=== PATIENT | female | born 1970 | race Caucasian/White ===

== ENCOUNTER 2023-09-18 14:49 | Outpatient (REF) | payer OTHER, SELFPAY ==
--- NOTE | ~2023-09-18 | XR_ITS ---
EXAMINATION: XR BILATERAL HIPS WITH AP PELVIS CLINICAL INFORMATION: Back and hip pain. COMPARISON: None available. TECHNIQUE: AP and frog-leg lateral views of each hip and an AP view of the pelvis. FINDINGS: Bones are in normal anatomic alignment with no acute fracture or dislocation seen. Both femoral heads are well-seated within the respected acetabula. No cortical disruption or trabecular irregularity to suggest underlying occult fracture. No significant bony degenerative or destructive lesions. Visualized soft tissues grossly unremarkable with tiny phleboliths incidentally seen in the pelvis. Unremarkable bowel gas pattern. XR/XR hip BI w PEL1V IMPRESSION: No acute fracture or dislocation. No acute bony abnormality.
--- NOTE | ~2023-09-18 | XR_ITS ---
EXAMINATION: XR THORACIC SPINE CLINICAL INFORMATION: Back pain COMPARISON: None available. TECHNIQUE: 3 views of the thoracic spine were obtained. FINDINGS: There is no fracture or bone destruction seen and the vertebral alignment is normal. There is moderate multilevel degenerative spondylosis of disc height narrowing and vertebral endplate spurs.. There is no abnormality of the paraspinal soft tissues. XR/XR thoracic spine 3V IMPRESSION: 1. No acute abnormality. 2. Moderate multilevel degenerative spondylosis of the thoracic spine.
--- NOTE | ~2023-09-18 | XR_ITS ---
EXAMINATION: XR CHEST CLINICAL INFORMATION: Back pain COMPARISON: None available. TECHNIQUE: 2 views of the chest were obtained. FINDINGS: Lungs are clear. No pulmonary vascular congestion. There is no pleural effusion. The heart size is normal. The cardiac and mediastinal contours are normal. No acute osseous abnormality. There are multilevel degenerative changes of dorsal spine. XR/XR chest 2V IMPRESSION: No acute abnormality of chest.
--- NOTE | ~2023-09-18 | XR_ITS ---
EXAMINATION: XR LUMBOSACRAL SPINE CLINICAL INFORMATION: Back pain. COMPARISON: None available. TECHNIQUE: 2 views of the lumbosacral spine. FINDINGS: Lumbar vertebrae have normal height and alignment. No fracture or bone destruction. Lumbar disc heights are normal. Minor degenerative lipping at L4 vertebrae anterior superior endplate. Facet joints are normal. No spondylolysis or spondylolisthesis. Sacroiliac joints are normal. XR/XR lumbar spine 2-3V IMPRESSION: 1. No acute abnormality. 2. Minor degenerative lipping at L4 vertebrae.
--- NOTE | ~2023-09-18 | XR_ITS ---
EXAMINATION: XR CERVICAL SPINE CLINICAL INFORMATION: Back pain. COMPARISON: None available. TECHNIQUE: 5 views of cervical spine. FINDINGS: There is degenerative disc height narrowing with vertebral endplate spur and C5-C6. Slight reversal of the lordotic curve at this disc level. There are posterior spurs encroaching into the neural foramina at C5-C6, right greater than left. Facet joints are normal. XR/XR cervical spine 5V IMPRESSION: Degenerative spondylosis of the cervical spine at C5-C6. Posterior spurs encroaching into the neural foramina at C5-C6.
== END 2023-09-18 14:50 | disposition home or self-care (01) ==
LOC: HO.XRAY 14:49
PROVIDERS: PCP Internal Medicine; Referring Provider Internal Medicine; Visit Provider Physician Assistant Medical
DX: R05.9 Cough, unspecified (principal); M54.9 Dorsalgia, unspecified; M25.552 Pain in left hip; M25.551 Pain in right hip
CPT/HCPCS: 71046; 72050; 72072; 72100; 73521

== ENCOUNTER 2023-10-26 15:44 | Emergency (ER) | payer OTHER, SELFPAY ==
--- NOTE | ~2023-10-26 | XR_ITS ---
EXAMINATION: XR WRIST, RIGHT CLINICAL INFORMATION: Pain status post injury. COMPARISON: None available. TECHNIQUE: PA, lateral, and oblique views of the right wrist. FINDINGS: The bones and soft tissues are normal. No fracture. Alignment is anatomic with normal joint spaces. No bony erosions. There is mild dorsal wrist soft tissue swelling.. XR/XR wrist RT min 3V IMPRESSION: Mild dorsal wrist soft tissue swelling. No visible acute fracture or dislocation seen.
[2023-10-26 15:46] VITALS: BP 126/75; PULSE 84; RESP 18; TEMP 36; O2SAT 97; BMI 23.3
--- NOTE | 2023-10-26 15:46 | ED_ITS ---
HPI - General Adult General Chief complaint: Extremity Injury, Upper Stated complaint: R wrist inj Time Seen by Provider: 10/26/23 16:55 Source: patient and family (patient's father) Mode of arrival: ambulatory Limitations: no limitations History of Present Illness HPI narrative: Patient is a 53 year old assigned female at with a history of breast cancer presenting to the emergency department today with right wrist pain. Patient states that she was attempting to start a pull start wood splitter when the cord snapped and she felt a snap in her wrist. Patient denies any dizziness, lightheadedness, abdominal pain, nausea, vomiting, fever, chills, blurry vision, double vision, loss of vision, chest pain, difficulty breathing, shortness of breath, back pain, night sweats, pain with urination, increased urinary frequency, increased urinary urgency, blood in her urine or stool, syncope or a near syncopal episode, bowel incontinence, bladder incontinence, bowel retention, bladder retention, or any other complaints at this time. Onset (ago): hour(s) Location: right and upper extremity Radiation: non-radiation Severity: mild Severity scale (1-10): 3 Quality: aching and dull Pain Consistency: constant Relieving factors: none Exacerbating factors: none Associated symptoms: denies other symptoms Treatments prior to arrival: none Related Data Allergies Allergy/AdvReac Type Severity Reaction Status Date / Time No Known Allergies Allergy Verified 10/26/23 15:48 Review of Systems Constitutional: Constitutional: Reports no additional constitutional complaints, Denies chills, Denies fever(s) and Denies night sweats Eyes: Eyes: Reports no additional eye complaints, Denies blurry vision, Denies change in vision, Denies diplopia, Denies eye discharge, Denies loss of vision and Denies eye pain ENT: Denies dizziness Cardiovascular: Cardiovascular: Reports no additional cardiovascular complaints, Denies chest pain, Denies lightheadedness, Denies Loss of Consciousness and Denies dyspnea Respiratory: Respiratory: Reports no additional respiratory complaints and Denies dyspnea Gastrointestinal: Gastrointestinal: Reports no additional gastrointestinal complaints, Denies abdominal pain, Denies melena, Denies hematochezia, Denies change in bowel habits and Denies change in stool character Genitourinary: Genitourinary: Denies hematuria, Denies urinary frequency, Denies dysuria, Denies urinary incontinence, Denies urinary hesitancy and Denies urinary urgency Musculoskeletal: Musculoskeletal: Reports no additional musculoskeletal complaints, Denies numbness and Denies tingling Comments: right wrist pain Neurologic: Denies dizziness, Denies loss of vision, Denies numbness and Denies tingling Psychiatric: Psychiatric: Reports no additional psychiatric complaints Endocrine: Endocrine: Reports no additional endocrine complaints Hematologic/Lymphatic: Hematologic/Lymphatic: Reports no additional hematologic/lymphatic complaints Allergic/Immunologic: Allergic/Immunologic: Reports no additional allergic/immunologic complaints PMFSH Past Medical History Attestation statement: The following information was validated with the patient. (patient's father validated all information) Source: old records reviewed, obtained from family (patient's father provided additional history and confirmed the history provided by the patient.) and nursing notes reviewed Physical Exam ED Vital Signs: Vital Signs - 24 hr 10/26/23 15:46 Temperature 96.8 F Pulse Rate 84 Respiratory Rate 18 Blood Pressure 126/75 Pulse Oximetry 97 Oxygen Delivery Method Room Air BMI result Body Mass Index 23.3 Const General: cooperative, no acute distress, alert and awake Nutritional Appearance: well nourished Orientation/consciousness: patient oriented x3 Limitations: no limitations HENMT Head: Yes normal to inspection and Yes atraumatic Ears: hearing grossly normal bilaterally and external ears normal General nose exam: Normal external nose present, no nasal discharge noted and no epistaxis Face and sinus: Yes normal facial exam, No abrasion and No laceration Mouth: Normal oral and palatal mucosa present, no drooling and no muffled voice Eyes General: appearance normal, both eyes and all related structures Periorbital: periorbital findings normal Eyelids: Yes eyelids normal Conjunctivae: conjunctivae normal Pupils: Equal, round and reactive pupils present EOM: EOMs intact bilaterally Neck Neck: Yes normal visual inspection, Yes full ROM and Yes no lymphadenopathy Chest Chest palpation & inspection: normal inspection of the chest Resp Effort & Inspection: normal respiratory effort and able to speak in complete sentences GI Inspection: Yes normal to inspection Neuro General: patient oriented x3 and moves all extremities Cranial nerves: Yes Equal, round and reactive pupils present Cognition (Neuro): normal cognition Motor exam (neuro): 5/5 motor strength present throughout Sensory Exam: Normal double simultaneous stimulation for sensation Coordination: [id number] test normal Extrem Other: mild swelling to dorsal aspect of the right wrist and pain with right wrist ROM General: Yes capillary refill normal Psych Appearance: grossly normal Mental Status: mental status grossly normal Affect: normal affect Attitude: cooperative Thought process: Normal thought process present Thought content: Normal thought content present Insight: Good insight present (Psych) Course Course Course Narrative: RME performed by Rizwana Kothari PA-C. Patient is a 53 year old assigned female at presenting to the emergency department with right wrist pain. Detailed physical exam and review of systems are deferred to the gas system operator. Imaging ordered. Patient placed back in the waiting room pending room availability and results. Procedures Orthopedic Splinting/Casting Injury #1: Side: right Upper Extremity Injury Location: wrist Upper Extremity Immobilizer: volar splint Medical Decision Making Medical Decision Making MDM Narrative: Patient is a 53 year old assigned female at with a history of breast cancer presenting to the emergency department today with right wrist pain. Odalys kaba's physical exam was as noted in the physical exam portion of this note. Patient's right wrist x-ray showed no acute process. I explained my physical exam findings as well as all test results to the patient and the patient's father. I answered all questions asked by the patient and the patient's father. Patient's right wrist was placed in a velcro wrist splint, without incident. Patient's PMS was intact prior to and after splint placement. I stressed the importance of the patient taking her medication as prescribed. I stressed the importance of the patient following up with her primary care provider and an orthopedic provider. I stressed the importance of the patient returning to the emergency department immediately if her symptoms were to worsen or if she were to develop any dizziness, shortness of breath, difficulty breathing, chest pain, blurry vision, loss of vision, nausea, vomiting, abdominal pain, fever, chills, back pain, or any other complaints. Patient and the patient's father verbalized agreement and understanding with this treatment plan and discharge. Differential Diagnosis Differential Diagnoses: The differential diagnosis associated with the presentation includes wrist sprain wrist strain wrist pain wrist fracture Admission/Observation Consideration of admission/observation: Escalation of care including admission/observation considered Patient would have been admitted to the hospital had her work up had any findi ngs where hospital admission was appropriate and her clinical presentation warranted hospital admission. Independent Interpretation I performed an independent interpretation of an: Plain X-Ray Interpretation: My interpretation is in agreement with the radiologist's impression of this imaging study. EXAMINATION: XR WRIST, RIGHT CLINICAL INFORMATION: Pain status post injury. COMPARISON: None available. TECHNIQUE: PA, lateral, and oblique views of the right wrist. FINDINGS: The bones and soft tissues are normal. No fracture. Alignment is anatomic with normal joint spaces. No bony erosions. There is mild dorsal wrist soft tissue swelling.. XR/XR wrist RT min 3V IMPRESSION: Mild dorsal wrist soft tissue swelling. No visible acute fracture or dislocation seen. Dictated By: Watson Flores MD Signed By: Electronically signed by Watson Flores MD 10/26/23 9383 Radiology Impression Discussion of test interpretation with radiology: I have reviewed the radiologist's reading. Discharge Plan Discharge Clinical Impression: Sprain and strain of wrist Patient Disposition: Home, Self-Care Instructions: Wrist Injury (ED) Additional Instructions: Follow up with your primary care provider and orthopedic provider. Return to the emergency department immediately if your symptoms worsen or if you develop any dizziness, shortness of breath, difficulty breathing, chest pain, blurry vision, loss of vision, nausea, vomiting, abdominal pain, fever, chills, back pain, or any other complaints. Referrals: [facility] [place] [facility] [Provider Group] (Call to establish and follow up with an orthopedic provider. ) Cristiane Curtis MD [Primary Care Provider] - Stand Alone Forms: Work/School Release Print Language: Danish
== END 2023-10-26 17:05 | disposition home or self-care (01) ==
LOC: HO.ED 17:01
PROVIDERS: Emergency Provider Emergency Medicine Emergency Medical Services; PCP Internal Medicine
DX: S66.911A Strain of unspecified muscle, fascia and tendon at wrist and hand level, right hand, initial encounter (principal); X58.XXXA Exposure to other specified factors, initial encounter; Y93.9 Activity, unspecified; Y92.9 Unspecified place or not applicable; Y99.8 Other external cause status
CPT/HCPCS: 73110; 99282; 99283

== ENCOUNTER 2025-03-10 08:46 | Emergency (ER) | payer OTHER, SELFPAY ==
--- NOTE | ~2025-03-10 | CT_ITS ---
EXAMINATION: CT LUMBAR SPINE WITHOUT CONTRAST CLINICAL INFORMATION: Severe low back pain, history of breast cancer DLP: 331 mGY*cm COMPARISON: X-ray 09/18/2023 TECHNIQUE: Axial CT imaging was performed from T11 disc space through mid S3. This CT examination was performed using dose optimization techniques as appropriate, variously including the following: *Automated exposure control *Adjustment of mA and/or kV according to patient size (this includes techniques or standardized protocols for targeted exams where dose is matched to indication/reason for exam; i.e. extremities or head) *Use of iterative reconstruction technique FINDINGS: There are 5 non-rib bearing lumbar segments. There are Schmorl's nodes involving superior T12, L1, L3, L4 as well as inferior T12, L1, and L5. [id number]: No gross spinal stenosis or foraminal narrowing. CT has low contrast resolution. MRI and is not optimal for evaluation of disc spaces. L5-S1: There is possible central and left paracentral disc protrusion encroaching on the left S1 nerve root in the lateral recess. CT/CT lumbar spine wo IV con IMPRESSION: L5-S1: Possible central left paracentral disc herniation encroaching on the left S1 nerve root. Consider MRI without contrast. Electronically signed by: Ramón Starks MD 03/10/2025 10:44 AM EDT
[2025-03-10 08:49] VITALS: BP 125/59; PULSE 81; RESP 18; TEMP 36.4; O2SAT 100; BMI 24.4
--- NOTE | 2025-03-10 08:51 | ED_ITS ---
HPI - Back Pain/Injury General Chief Complaint: Back Pain/Injury Stated Complaint: Back Pain, Extreme leg pain, nerves? Time Seen by Provider: 03/10/25 09:04 Source: patient and family (patient's parents) Mode of arrival: ambulatory Limitations: no limitations History of Present Illness ED Provider: Rizwana Kothari PA-C HPI Narrative: Patient is a 54 year old assigned female at with a history of breast cancer presenting to the emergency department today with left lower back pain. Patient states that 2 weeks ago she thought she injured her back and went to [facility] walk in clinic where she was given steroids and muscle relaxers but the pain has continued. Patient states that it comes and goes in waves and feels like a sharp / burning / hot sensation down the left hamstring. Patient denies any dizziness, lightheadedness, abdominal pain, nausea, vomiting, fever, chills, blurry vision, double vision, loss of vision, chest pain, difficulty breathing, shortness of breath, night sweats, pain with urination, increased urinary frequency, increased urinary urgency, blood in her urine or stool, syncope or a near syncopal episode, recent trauma or falls, bowel incontinence, bladder incontinence, or any other complaints at this time. Onset (ago): week(s) (2) Timing: intermittent and progressively worsening Exacerbating factors: none Relieving factors: none Associated symptoms: denies other symptoms Related Data Previous Rx's ?Medication ?Instructions ?Recorded diazepam 2 mg tablet (Valium) 2 mg PO TID PRN muscle spasm #7 03/10/25 tabs Allergies Allergy/AdvReac Type Severity Reaction Status Date / Time Penicillins [PCN] Allergy Hives Verified 03/10/25 08:49 Review of Systems Constitutional: Constitutional: Reports no additional constitutional complaints, Denies chills, Denies fever(s) and Denies night sweats Eyes: Eyes: Reports no additional eye complaints, Denies blurry vision, Denies change in vision, Denies diplopia, Denies eye discharge, Denies loss of vision and Denies eye pain ENT: Denies dizziness Cardiovascular: Cardiovascular: Reports no additional cardiovascular complaints, Denies chest pain, Denies lightheadedness, Denies Loss of Consciousness and Denies dyspnea Respiratory: Respiratory: Reports no additional respiratory complaints and Denies dyspnea Gastrointestinal: Gastrointestinal: Reports no additional gastrointestinal complaints, Denies abdominal pain, Denies melena, Denies hematochezia, Denies change in bowel habits and Denies change in stool character Genitourinary: Genitourinary: Denies hematuria, Denies urinary frequency, Denies dysuria, Denies urinary incontinence, Denies urinary hesitancy and Denies urinary urgency Musculoskeletal: Musculoskeletal: Reports no additional musculoskeletal complaints, Denies numbness and Denies tingling Comments: left sided low back pain that radiates into the left upper leg Neurologic: Denies dizziness, Denies loss of vision, Denies numbness and Denies tingling Psychiatric: Psychiatric: Reports no additional psychiatric complaints Endocrine: Endocrine: Reports no additional endocrine complaints Hematologic/Lymphatic: Hematologic/Lymphatic: Reports no additional hematologic/lymphatic complaints Allergic/Immunologic: Allergic/Immunologic: Reports no additional allergic/immunologic complaints PMFSH Past Medical History Attestation statement: The following information was validated with the patient. (all information validated with the patient's parents) Source: old records reviewed, obtained from family (patient's parents provided additional history and confirmed the history provided by the patient.) and nursing notes reviewed Social History Social History Alcohol intake: current Alcohol type: beer Smoked in Last 30 Days: No Use of substances other than those prescribed or required for medical reasons: No Advance Directives: No Advance Directives Information Provided: Yes Patient : No Physical Exam Vital Signs: Vital Signs: Last Vital Signs Temp 97.4 F 03/10/25 10:15 Pulse 65 03/10/25 10:15 Resp 14 03/10/25 10:15 BP 109/69 03/10/25 10:15 Pulse Ox 96 03/10/25 10:15 O2 Del Method Room Air 03/10/25 10:15 BMI result Body Mass Index 24.4 Const: General: cooperative, no acute distress, alert and awake Nutritional Appearance: well nourished Orientation/consciousness: patient oriented x3 HEENT: Head: Yes normal to inspection and Yes atraumatic Ears: hearing grossly normal bilaterally and external ears normal General nose exam: Normal external nose present, no nasal discharge noted and no epistaxis Face and sinus: Yes normal facial exam, No abrasion and No laceration Mouth: Normal oral and palatal mucosa present, no drooling and no muffled voice Eyes: General: appearance normal, both eyes and all related structures Periorbital: periorbital findings normal Eyelids: Yes eyelids normal Conjunctivae: conjunctivae normal Pupils: Equal, round and reactive pupils present EOM: EOMs intact bilaterally Neck: Neck: Yes normal visual inspection, Yes full ROM and Yes no lymphadenopathy Resp: Effort & Inspection: normal respiratory effort and able to speak in complete sentences Neuro: General: patient oriented x3, moves all extremities and CN's II-XI intact bilaterally Cranial nerves: Yes Equal, round and reactive pupils present Cognition (Neuro): normal cognition Extrem: General: Yes normal to inspection, Yes full ROM and Yes capillary refill normal Psych: Appearance: grossly normal Mental Status: mental status grossly normal Affect: normal affect Attitude: cooperative Thought process: Normal thought process present Thought content: Normal thought content present Insight: Good insight present (Psych) Course Course Course Narrative: 54 yo female with PMH of breast cancer 2017 monitored at [facility] s/p double mastectomy, hysterectomy in who is here with L sided lower back pain that goes down to the butt this has been progressive for 3 weeks, no prior back surgery or injury. She was seen at yesterday and given toradol, prednisone for 6 days, cyclobenzaprine. Seen on Sunday at urgent care. No b/b incontinence, no saddle anesthesia, no IVDA, no blood thinners. At this time given her cancer history I am going to obtain CT lumbar spine and start on pain medications. She has never had pain like this before and has no prior back issues or procedures. this is a RAPID medical screening exam the rest of the history and physical exam is to be done by the main provider. MARCELINA 03/10/25 Medications Administered Generic Name Dose Route Start Last Admin Trade Name Freq PRN Reason Stop Dose Admin Sodium Chloride 1,000 mls @ 999 mls/hr 03/10/25 10:30 03/10/25 10:40 Ns IV 03/10/25 11:30 999 mls/hr .[id number] MARKELL Administration Discontinued Medications Generic Name Dose Route Start Last Admin Trade Name Freq PRN Reason Stop Dose Admin Diazepam 5 mg 03/10/25 08:53 03/10/25 09:14 Diazepam 10 Mg/2 Ml Cartridge IVPUSH 03/10/25 08:54 5 mg STAT STA Administration Morphine Sulfate 2 mg 03/10/25 08:53 03/10/25 09:14 Morphine Sulfate 2 Mg/Ml Cartridge IVPUSH 03/10/25 08:54 2 mg ONCE ONE Administration Protocol Medical Decision Making Medical Decision Making MDM Narrative: Patient is a 54 year old assigned female at with a history of breast cancer presenting to the emergency department today with left lower back pain. Patient's physical exam was unremarkable.Patient's lumbar spine CT ordered by the provider in triage showed L5-S1 possible central / paracentral left disc h erniation encroaching on the left S1 nerve root. Patient has no evidence of cauda equina. No bowel or bladder retention or incontinence. No numbness / tingling. I explained my physical exam findings as well as all test results to the patient. I answered all questions asked by the patient. Patient received Morphine and Valium which, upon re-evaluation, she stated it helped her symptoms significantly. I stressed the importance of the patient taking her medication as directed (either prescribed or as the over the counter packaging recommends). I stressed the importance of the patient following up with her primary care provider and a clinical account specialist. I stressed the importance of the patient returning to the emergency department immediately if her symptoms were to worsen or if she were to develop any dizziness, shortness of breath, difficulty breathing, chest pain, blurry vision, loss of vision, nausea, vomiting, abdominal pain, fever, chills, numbness, tingling, bladder incontinence, bladder retention, bowel incontinence, bowel retention or any other complaints. Patient verbalized agreement and understanding with this treatment plan and discharge. Differential Diagnosis Differential Diagnoses: The differential diagnosis associated with the presentation includes Low back pain Disc herniation Admission/Observation Consideration of admission/observation: Escalation of care including admission/observation considered Patient would have been admitted to the hospital had her work up had any findings where hospital admission was appropriate and her clinical presentation warranted hospital admission. Independent Interpretation I performed an independent interpretation of an: CT Scan (Lumbar) Interpretation: My interpretation is in agreement with the radiologist's impression of this imaging study. Report Number: [id number]: Total DLP = 331.00 mGy-cm EXAMINATION: CT LUMBAR SPINE WITHOUT CONTRAST CLINICAL INFORMATION: Severe low back pain, history of breast cancer DLP: 331 mGY*cm COMPARISON: X-ray 09/18/2023 TECHNIQUE: Axial CT imaging was performed from T11 disc space through mid S3. This CT examination was performed using dose optimization techniques as appropriate, variously including the following: *Automated exposure control *Adjustment of mA and/or kV according to patient size (this includes techniques or standardized protocols for targeted exams where dose is matched to indication/reason for exam; i.e. extremities or head) *Use of iterative reconstruction technique FINDINGS: There are 5 non-rib bearing lumbar segments. There are Schmorl's nodes involving superior T12, L1, L3, L4 as well as inferior T12, L1, and L5. [id number]: No gross spinal stenosis or foraminal narrowing. CT has low contra st resolution. MRI and is not optimal for evaluation of disc spaces. L5-S1: There is possible central and left paracentral disc protrusion encroaching on the left S1 nerve root in the lateral recess. CT/CT lumbar spine wo IV con IMPRESSION: L5-S1: Possible central left paracentral disc herniation encroaching on the left S1 nerve root. Consider MRI without contrast. Electronically signed by: Ramón Starks MD 03/10/2025 10:44 AM EDT Dictated By: Ramón Starks MD Signed By: Electronically signed by Ramón Starks MD 03/10/25 1044 Radiology Impression Discussion of test interpretation with radiology: I have reviewed the radiologist's reading. Independent Historian Clinical information obtained from an independent historian. History obtained from or confirmed by: Parent (Patient's parents provided additional history and confirmed the history provided by the patient) Prescription Management I considered prescription management with: Other (Patient prescribed valium for muscle spasm) Critical Care Time Critical Care Time Critical Care Time: Yes Total Critical Care Time: 32 Attestation: I spent 32 minutes of Critical Care Time with this patient. This does not include time spent on separately reported billable procedures. Discharge Plan Discharge Clinical Impression: Lumbar radiculopathy, Lumbar disc herniation Patient Disposition: Home, Self-Care Instructions: Lumbar Disc Herniation (ED), Lumbar Radiculopathy (ED), Lower Back Exercises (ED) Additional Instructions: Your CT scan showed a possible L5-S1 central / left paracentral disc herniation encroaching on the left S1 nerve root. Follow up with your primary care provider and a clinical account specialist. Return to the emergency department immediately if your symptoms worsen or if you develop any numbness, tingling, dizziness, shortness of breath, difficulty breathing, chest pain, blurry vision, loss of vision, nausea, vomiting, abdominal pain, fever, chills, back pain, or any other complaints. Please see the information below about our Patient Portal. If you are not yet enrolled in the [facility] Patient Portal, you will receive an enrollment email invitation following your visit to any [facility] setting. You may also self-enroll in the Patient Portal by visiting our website: [email or web address] The following information is required to access the Patient Portal: - Your [facility] Medical Record Number - Your personal home email address (must match what is in your electronic medical record, Registration staff can assist with this) - Name - Date of Capabilities of the Patient Portal: - Message some providers - View upcoming appointments - Access your health summary, medical history, and visit history - View current conditions and allergies - View procedure and lab results - View your medications, including guidelines, side effects, and precautions - Complete pre-appointment questionnaires requested by your provider - Ready summary reports of your office visits and procedures To access the Patient Portal Mobile Max, follow these directions: - Search vIPtela in the Max Store or Zoomorama Store - Download the Max - Search for [facility] - Enter your login/password Prescriptions: New diazepam [Valium] 2 mg tablet 2 mg PO TID PRN (Reason: muscle spasm) Qty: 7 0RF Referrals: [facility] [Provider Group] (Call to establish and follow up with a clinical account specialist. ) [facility] [Provider Group] (Call to establish and follow up with a clinical account specialist. ) Cristiane Curtis MD [Primary Care Provider] - Stand Alone Forms: Work/School Release Interventions: ED Discharge Assessment Last Done: 03/10/25 11:24 Print Language: Lao
[2025-03-10 08:59] VITALS: BP 125/59; PULSE 81; RESP 18; TEMP 36.4; O2SAT 100
--- NOTE | 2025-03-10 09:01 | PC.NURSE ---
Patient A&O x 3. Patient presents to ED c/o lower left back pain which radiates into posterior left leg rated 10/10. Pain started 2 weeks and symptoms have become worse. Denies injury. +ROM +CMS in all extremities. Patient went to [facility] urgent care on Sunday, xrays unremarkable and was given a shot of tordol with no effect. VSS and up to date. Family at bedside. Plan of care on going.
[2025-03-10 09:14] VITALS: RESP 16
[2025-03-10] MEDS: Morphine Sulfate 2 MG/ML CARTRIDGE IVPUSH (09:14)
[2025-03-10] MEDS: diazePAM 10 MG/2 ML CARTRIDGE 5 MG IVPUSH (09:14)
[2025-03-10 10:15] VITALS: BP 109/69; PULSE 65; RESP 14; TEMP 36.3; O2SAT 96
[2025-03-10] MEDS: 0.9 % Sodium Chloride 1,000 ML 999 ML IV (10:40)
[2025-03-10 11:24] VITALS: BP 117/77; PULSE 58; RESP 16; TEMP 36.3; O2SAT 99
== END 2025-03-10 11:30 | disposition home or self-care (01) ==
PROVIDERS: Emergency Provider Emergency Medicine; PCP Internal Medicine
DX: M51.16 Intervertebral disc disorders with radiculopathy, lumbar region (principal); M54.50 Low back pain, unspecified
CPT/HCPCS: 72131; 96361; 96374; 96375; 99284; J2270; J3360

== ENCOUNTER → 2025-03-10 08:53 | Outpatient (BNV) | payer OTHER, SELFPAY | PROVIDERS: PCP Internal Medicine; Visit Provider Radiology Diagnostic Radiology | DX: M51.16 Intervertebral disc disorders with radiculopathy, lumbar region (principal) | CPT/HCPCS: 72131 ==

== ENCOUNTER 2025-03-20 10:02 | Outpatient (AMB) | payer OTHER, SELFPAY ==
--- NOTE | 2025-03-20 10:12 | HO.SPINEOV ---
Intake Visit Reasons: ED f/u 03/10/25 Intake Note: Ms. Fowler is here today for an ED F/u for back pain/injury. Long Term Care Phlebotomist Required: No Allergies Penicillins (PCN) Allergy (Verified 03/20/25 10:14) Hives Assessment & Plan Assessment & Plan (1) Lumbar disc herniation: Code(s): M51.26 - Other intervertebral disc displacement, lumbar region Category: Medical Plan This is a very nice 54-year-old female who presents for evaluation of low back pain radiating down into her left leg, hamstring and calf that started about 3 weeks ago. She was lifting a heavy box overhead work on a chair and felt some strain in her back. Within a few days though the tightness in her back turned into a lumbar radiculopathy radiating down her leg. Ultimately she ended up pursuing treatment because the pain was so intense she was barely able to stand and move. She went to the [facility] urgent care where she had some kind of intramuscular shot and was given a steroid pack and muscle relaxers. That did not help much, she ended up at [facility] emergency room where a CT scan showed a herniated disc on the left at L5-S1. She went to [facility] as well where they ordered an MRI and changed up some of her medications. They gave her gabapentin and I believe. She was also seen by her chiropractor 6 times, and the last time it was too intense to continue because the pain was getting aggravated and significantly worse. She has been an absolute agony over the last few weeks in his unable to sit, stand, walk or sleep. The pain is becoming exhausting. She is currently on a regimen of Advil, gabapentin and tramadol but it is barely holding. She came in today with an MRI that was just done at the [facility] showing a herniated disc on the left at L5-S1 consistent with her previous CT PMH: She had a double mastectomy done 2017 for breast cancer, she is in remission, she had left ACL repair in 2008, hysterectomy in 2019. Other than that she is healthy with no major medical conditions or problems. Social hx: Does not smoke drink or use any recreational drugs Medications: Just the above-mentioned medications for her pain relief Allergies: Penicillin Physical exam: Patient is awake alert oriented, very uncomfortable, hobbling around the room, hopping on 1 ft at times because she is unable to bear weight on the left side. She is unable to sit on the examining table because she can not put pressure on her left butt cheek. She has weakness in her left plantar flexion which I would rate as 4-5 in an absent Achilles reflex. Straight leg raise is basically positive at 10 degrees, I was unable to manipulate her leg at all without severe severe pain. Imaging review: Lumbar MRI done at [facility] today, there is no report but it clearly shows a large herniated disc on the left at L5-S1 compressing the left S1 nerve root Impression: 54-year-old female presents with 3 weeks of worsening left S1 radiculopathy secondary to a large herniated disc. She is in absolute agony, has been able to walk, sit or sleep for the last 3 weeks. She has been through conservative management as outlined above. I think she would be a great candidate for left L5-S1 microdiskectomy. Especially in light of the weakness in her foot and the Achilles reflexes being absent I think we should move this up urgently. We did discuss the fact that herniated disc can resolve on their own and if she wanted to try to wait this out that possibility exists, but I could not tell her when the pain might go away. Therefore she wished to go ahead and book the surgery. I put her down for March 26 next week. I quoted success rate at 90% and she understands there is some risk that the disc could be herniate. We discuss recovery from surgery as well, she understands she will be on lifting and twisting restrictions for 6 weeks. The patient was given risk and benefits of surgery including but not limited to infection, hematoma, nerve injury, durotomy, weakness, bowel/bladder injury, persistent pain, recurrent herniated disc. We also discussed the option to continue with conservative treatment and patient wishes to proceed with surgery. They are aware they should stop NSAIDs 7 days prior to surgery. All questions were answered to the best of our ability. If there is anything about this patients medical history that we have overlooked or concerns you have about us proceeding with surgery we would appreciate any input you can offer Thank you for allowing us to care for your patient. The total time spent with this visit with this patient was 45 minutes reviewing history, physical exam, lumbar imaging review, and implementation of treatment plan or further diagnostic testing Aj Osorio MD,PhD [facility] Coding Level of Care Code New Pt Level 4 (90832) Diagnoses Lumbar disc herniation M51.26
--- OUTSIDE RECORDS SUMMARY | 2025-03-20 10:37 | XMS_ITS | Data Portability ---
Author Organization [place] - [facility], Allergy Address [address] [address] Care Team Providers Care Car Rental Deliverer Name Role Phone Secret Space Primary Care Pro vider Assessment Encounter Date Assessment Date Assessment LastModified by Organization Details LastModified Time 05/29/2024 05/29/2024 Patient with persistent right sided obstruction and pressure following septoplasty, turbinate reduction and endoscopic sinus surgery. She started powered nasal lavage but did not at the budesonide Examination showed septal deviation anteriorly to the right side but no evidence of hematoma. Debridement was performed bilaterally and a copious amount of thick secretions were evacuated. There was some small adhesion between the middle turbinate and the lateral nasal wall on the right side. I am hopeful that with steroid irrigations twice daily and saline during the day things will settle down. She will follow-up next week for debridement and see me back in 2 weeks cherelle Not available 05/29/2024 08:46:38 06/03/2024 06/03/2024 54 year old female s/p septoplasty, turbinate reduction and endoscopic sinus surgery by Dr. Richards. Currently on doxycycline. Examination again demonstrated septal deviation anteriorly to the right side but no evidence of hematoma. Debridement was performed bilaterally and a small amount amount of thick secretions were evacuated. She will continue steroid irrigations twice daily and saline during the day. She will follow-up with Dr. Richards in 2 weeks. [email or web address] Not available 06/03/2024 09:32:31 06/20/2024 06/20/2024 Marked improvement following endoscopic sinus surgery, septoplasty and turbinate reduction May 15. She will continue with steroid and saline irrigations. Follow-up in 2 months. cherelle Not available 06/20/2024 12:04:15 08/15/2024 08/15/2024 Patient with history of nasal polyps, negative allergy evaluation and mildly elevated eosinophil count. No known history of aspirin or ibuprofen allergy. She did not do the 24-hour urinary leukotriene E4. Presently doing quite well breathing is excellent sense of smell is still not great. She is doing budesonide twice daily most days. Examination shows no evidence of any polypoid degeneration. She will continue the current regimen and see me back in 6 months cherelle Not available 08/15/2024 12:00:39 Plan of Treatment Reminders Order Date Submit Date Provider Last Modified By Organization Details Last Modified Time Details Appointments Establish ed 15 2024 08:30A M MARLEE CRUZ MD Not available Not available Not available Lab None recorded. Referral None recorded. Procedures None recorded. Surgeries None recorded. Imaging None recorded. Medication Orders None recorded. Patient TargetsNo targets recorded. Patient Instructions Encounter Date Encounter Id Patient Instructions Last Modified By Organization Details Last Modified Time 02/06/2025 [id number] Patient with history of nasal polyps and mild elevation of eosinophil count. Recent increase in congestion but no evidence of polyps. Suggest more consistent use of budesonide irrigations and follow-up in 6 months cherelle Not available 02/06/2025 12:12:35 Reason for Referral None Reported. Results Created Date Observation Date Name Description Value Unit Range Abnormal Flag Note LastModifiedBy Organization Detail LastModifiedTime 05/14/20 24 12/05/2023 imagi ng/di bonyos tic resul t No observ ation record ed. [email or web address] Not Available 05:17:02 Result Notes None recorded. Problems Name Problem SNOMED Code Status Onset Date Resolution Date Notes Provider Name and Address Organization Details Recorded Time Chronic sinusitis 34969414 Active 2023 MARLEE HENRY MD [address] [place] [address], [place], [address] , [facility] - [facility] 15:25:50 Deviated nasal septum 261412815 Active 2023 MARLEE HENRY MD 100 [facility],[address], [place], [place], [address] , [facility] - [facility] [place] 4 15:26:06 Polyp of nasal cavity and/or nasal sinus 354709678 Active 2023 MARLEE HENRY MD 100 [facility],[address], [place], [address] , [place] - [facility] [place] 4 15:26:30 Chronic pansinusi tis 96502770 Active 2023 Chronic pansinusit is; Note: Date Diagnosed: 12/05/2023 4:16 PM (J32.4) Not Available [facility] 4 02:12:46 Hypertrop hy of nasal turbinate s 36360247 Active 2023 Hypertroph y of nasal turbinates ; Note: Date Diagnosed: 11/19/2015 8:40 AM (J34.3) MARLEE HENRY MD 100 [facility],[place] [address], [place], [address] , [facility] - [facility] 5 11:57:20 Polyp of nasal cavity 077627777 Active 2023 Polyp of nasal cavity; Note: Date Diagnosed: 11/24/2015 4:49 PM (J33.0) Not Available [facility] 4 02:14:46 Chronic rhinitis 97392249 Active 2023 MARLEE HENRY MD 100 [facility],[place] [address], [place], [address] , [facility] - [facility] 5 11:57:15 Eosinophi l count above reference range 934762015 Active 2024 MARLEE HENRY MD 100 [facility] [[email or web address]] 100, [place], [address] , [facility] - [facility] [place] 5 12:13:08 Problem Notes None recorded. Procedures Surgical History Date Name Laterality Status Provider Name and Address Organization Details Recorded Time 5 JMSNasal/Sinus Endoscopy-PRIOR surgical cavities completed MARLEE RICHARDS MD [address],[place] [place] [address], [address], [place] - [facility] [place] 02/06/2025 11:57:10 4 JMSNasal/Sinus Endoscopy-PRIOR surgical cavities completed MARLEE RICHARDS MD [address],[place] [address] [place] [address], [address], [place] [facility] [place] 08/15/2024 11:59:59 4 JMSNasal/Sinus Endoscopy-PRIOR surgical cavities completed MARLEE RICHARDS MD [address],[place] [address] [place] [address], [address], [place] [facility] [place] 06/20/2024 12:03:26 4 JMSNasal/Sinus Endoscopy-DEBRI BETZY completed MICHAEL GROVER PA-C [address] [facility],[place] [address] [place] [address], [address], [place] - [facility] [place] 06/03/2024 09:30:27 4 JMSNasal/Sinus Endoscopy-DEBRI BETZY completed MARLEE RICHARDS MD [address] [facility] [place] [address] [place] [address], [address], [place] [facility] [place] 05/29/2024 08:47:33 4 JMSNasal/Sinus Endoscopy-DEBRI BETZY completed MARLEE RICHARDS MD [address] [facility],[place] [address] [place] [address], [address], [place] [facility] [place] 05/27/2024 16:28:35 4 JMSNasal/Sinus Endoscopy-DEBRI BETZY completed HOLLY BAILON PA-C [address] [facility] [place] [address] [place] [address], [address], [place] - [facility] [place] 2024 11:23:19 4 functional endoscopic sinus surgery completed MARLEE RICHARDS MD [address],[place] [address] [place] [address], [address], [place] [facility] [place] 05/27/2024 16:24:33 Imaging Results None recorded. Procedure Notes None recorded. Medical Equipment None Reported. Allergies Allergen ID Allergen Name Allergen Category Reaction Reaction Severity Criticality Documentation Date Start Date Code Code System Note Provider Name and Address Organization Details Recorded Time 136854 Penicilli n Not available other Not available Not available 04/25/2024 40595 RxNorm React ion: Unkno wn; Not Available [facility] 00:23:13 Medications Name Sig Start Date Stop Date Status Note LastModified by Organization Details LastModified Time doxycycli ne hyclate 100 mg capsule TAKE 1 CAPSULE BY MOUTH TWICE A DAY FOR 10 DAYS 06/20 completed Not Available Not Available Not Available prednison e 20 mg tablet by mouth 01/27 completed Medicati on ID: [id number] P rescribe d By Name: Kathy Mart MD Brand Name: predniso ne Send Method: E-Prescr ibed Sub s Allowed: subs OK Speci al Instruct ion: Take 3 tabs daily for 3 days then 2 tabs daily for 3 days then 1 tabs daily for 3 days then stop Med icationG enericNa me: predniso ne Not Available Not Available Not Available budesonid e 0.5 mg/2 mL suspensio n for nebulizat ion USE ONE VIAL IN NEILMED RINSE TWICE DAILY. 1/2 BOTTLE PER NOSTRIL. active Not Available Not Available No t Available [address] 10 mg tablet Take 1 tablet by mouth 05/19 completed Not Available Not Available Not Available doxycycli ne hyclate 100 mg tablet TAKE 1 TABLET (100 MG) BY MOUTH EVERY 12 HOURS 02/06 completed Not Available Not Available Not Available Bactrim DS 800 mg-160 mg tablet Take 1 tablet every twelve hours as directed 05/19 completed Medicati on ID: [id number] D uration Value: 14 Brand Name: Bactrim DS Send Method: E-Prescr ibed Sub s Allowed: subs OK Speci al Instruct ion: Yogurt/p robiotic concurre ntly Med icationG enericNa me: Bactrim DS Not Available Not Available Not Available Xhance 93 mcg/actua tion breath activated aerosol Pfeifer 1 spray twice a day by intranas al route. 05/19 completed Not Available Not Available Not Available Vitals Date Recorded Body height Body mass index (BMI) Body weight Provider Name and Address Organization Details Last Updated DateTime 06/03/2024 162.56 cm 23.7 kg/m2 71554.75 g Eve Fulton [place] - [facility] 06/03/2024 08:49:30 Date Recorded Body height Body weight Provider Name and Address Organization Details Last Updated DateTime 06/20/2024 162.56 cm 37124.75 g Nandini Gee [place] [facility] [place] 06/20/2024 11:29:09 Date Recorded Body height Body mass index (BMI) Body weight Provider Name and Address Organization Details Last Updated DateTime 08/15/2024 162.56 cm 24 kg/m2 02423.93 g Bunny Reveles [place] [facility] 08/15/2024 11:44:26 Social History None recorded. Functional Status None recorded. Mental Status None recorded. Family History Nothing Reported. Medical History Condition Response Cancer Y Gynecological HistoryNo gynecological history recorded. Obstetrics History GPAL:G 0 P 0 0 0 0 Past Encounters Encounter ID Performer Location Encounter Start Date Encounter Closed Date Diagnosis/Indication Diagnosis SNOMED-CT Code Diagnosis ICD10 Code Diagnosis Note [id number] MARLEE HENRY MD [facility] [address] [address] 04/21/2024 14:44:30 04/21/2024 15:33:09 Chronic sinusitis 11815975 J32.8 The risks and benefits of endoscopic sinus surgery and septoplast y were discussed with the patient, including: bleeding, infection, anosmia (loss of sense of smell), epiphora (tearing), double vision, loss of vision, CSF leak, continued nasal obstructio n, brain injury, septal perforatio n and continued sinus infections . The patient's questions regarding surgery were discussed in detail and their concerns were addressed. The patient provided verbal informed consent and surgery will be scheduled in the near future. Endoscopic Sinus surgery brochure Deviated nasal septum 12 3260784 J34.2 Polyp of n brianne cavity and/or nasal sinus 868069978 J33.9 [id number] MARLEE HENRY MD [facility] of [address] [address] 2024 09:57:48 2024 10:27:24 Deviated nasal septum 454065263 J34.2 Resolved Hypertroph y of nasal turbinates 24031253 J34.3 Resolved Chronic pansinusitis 888 54023 J32.4 s/p FESS 04/2024 Polyp of n brianne cavity and/or nasal sinus 911082133 J33.9 s/p polypectom y 04/2024 [id number] MARLEE HENRY MD [facility] of [facility] on [address] [place] [address], [place] [address] 05/27/2024 15:32:36 05/27/2024 16:40:18 Chronic sinusitis 64146284 J32.8 [id number] MARLEE HENRY MD [facility] of [address] [address] 05/29/2024 08:07:40 05/29/2024 08:58:15 Chronic sinusitis 09444360 J32.8 [id number] MICHAEL GROVER PA-C [facility] of [facility], [facility] on [address] [place] [address], [place] [address] 06/03/2024 08:45:46 06/03/2024 09:39:23 Deviated nasal septum 968193429 J34.2 Chronic pansinusitis 888 52895 J32.4 [id number] MARLEE HENRY MD [facility] of [address] [address] 06/20/2024 11:12:16 06/20/2024 12:05:05 History of neoplasm 700935902 Z86.018 Chronic rhinitis 7788651 6 J31.0 [id number] MARLEE HENRY MD [facility] of [address] [address] 08/15/2024 11:40:50 08/15/2024 12:14:40 Chronic sinusitis 03110204 J32.8 Polyp of nasal cavity 73 6774125 J33.0 [id number] MARLEE HENRY MD [facility] of [facility] 100 [place] [address] 02/06/2025 11:13:22 02/06/2025 12:01:17 Chronic rhinitis 83495393 J31.0 Hypertroph y of nasal turbinates 76194886 J34.3 Eosinophil count above reference range 333963783 R89.8 Health Concerns Section Related Observation LastModified by Organization Detai ls LastModified Time None Recorded Concern Status LastModified by Organization Details LastModified Time None Recorded Advance Directives Directive None Recorded Payers Insurance Date Sequence Insurance Name Policy Number Policy Awan Covered Member ID Awan Member ID Guarantor Name 02/06/2025 1 [facility] [employer] (PPO) [id number] Saúl Fowler [id number] Chante Fowler Notes Date Note Type Note Provider Name and Address Organization Details Recorded Time 05/29/2024 text/html Patient with persistent right sided obstruction and pressure following septoplasty, turbinate reduction and endoscopic sinus surgery. She started powered nasal lavage but did not at the budesonide MARLEE RICHARDS MD 100 [facility],[address], [address], [place] - [facility] 05/29/2024 08:47:59 06/03/2024 text/html 54 year old fema le with persistent right sided obstruction and pressure following septoplasty, turbinate reduction and endoscopic sinus surgery by Dr. Richards. She started powered nasal lavage. She is on doxycycline. She still feels some pressure on the right side under her eye. DARLENE CERVANTES MD 100 [facility],[place] [address], [place], [address], [place] [facility] 06/04/2024 05:12:53 06/20/2024 text/html Overall doing we ll following septoplasty, turbinate reduction and bilateral endoscopic sinus surgery. Presently Breathing and sense of doing saline lavage with the powered system including the budesonide. Otherwise well. No complaints MARLEE RICHARDS MD 100 [facility] [[email or web address]] 100, [place], [address], [place] [facility] [place] 06/20/2024 12:05:18 02/06/2025 text/html More congestion recently. Prior RAST negative...Eosinop hil was 6%Not as diligent recently with budesonide MARLEE RICHARDS MD [address] [place] [address], [address], [place] [facility] 02/06/2025 12:13:23 OBGyn Episode No OBEpisode recorded.
== END 2025-03-20 11:10 | disposition home or self-care (01) ==
LOC: HO.HNS 10:03
PROVIDERS: PCP Internal Medicine; Visit Provider Physician Assistant
DX: M51.26 Other intervertebral disc displacement, lumbar region (principal)
CPT/HCPCS: 99204

== ENCOUNTER → 2025-03-24 08:12 | Outpatient (BNVA) | payer OTHER, SELFPAY | PROVIDERS: PCP Internal Medicine; Visit Provider Registered Nurse | DX: M51.27 Other intervertebral disc displacement, lumbosacral region (principal) | CPT/HCPCS: 99203 ==

== ENCOUNTER 2025-03-26 07:07 | Day surgery (SDC) | payer OTHER, SELFPAY ==
[2025-03-23 09:09] VITALS: BMI 23.0
--- NOTE | 2025-03-24 12:13 | HO.ANESPROP2 ---
Documented by User: Deepti Lowe NP 03/24/25 12:13 HPI - Anesthesia Eval Consult details Narrative: 54yo F for Left L5-S1 MicroLumbar discectomy Breast CA s/p bilat mastectomy 2016 [facility] Past Medical History Medical History Back pain Tick bite Breast cancer Surgical History Surgical History H/O sinus surgery Hx of tonsillectomy H/O colonoscopy Hx of hysterectomy History of repair of anterior cruciate ligament of left knee Hx of bilateral mastectomy Social History Social History Do you presently have visiting nurse or other home services: No Alcohol intake: current Alcohol type: beer Patient Tobacco Use Status: Never used Tobacco Use of substances other than those prescribed or required for medical reasons: No Have you been hit, kicked, punched, or otherwise hurt by someone within the past year? If so, by whom?: No Spiritual Healthcare Practices: no Buddhism Healthcare Practices: no Cultural Healthcare Practices: no Are you DNR?: No Advance Directives Information Provided: Yes (as above noted) Advance Directives on File: No FDLMP: n/a-had hysterectomy Poor oral hygiene: No (Invisalign aligners) Meds Allergies Allergy/AdvReac Type Severity Reaction Status Date / Time Penicillins (PCN) Allergy Intermediate Hives Verified 03/26/25 07:58 Home Medications ?Medication ?Instructions ?Recorded ?Confirmed ?Last Taken ?Type gabapentin 300 mg capsule 300 mg PO TID 03/23/25 03/26/25 03/25/25 History tramadol 50 mg tablet 50 mg PO TID PRN severe pain 03/23/25 03/26/25 03/26/25 06:00 History Exam Height,Weight and Vital Signs: Height 5 ft 3.5 in Weight 59.874 kg Assessment and Plan Assessment Anesthesia Assessment: Chart Reviewed Documented by User: Rossy Lr MD 03/26/25 09:40 PMFSH Past Medical History Medical History Back pain Tick bite Breast cancer Family History Family history of problems with anesthesia: No Surgical History Surgical History H/O sinus surgery Hx of tonsillectomy H/O colonoscopy Hx of hysterectomy History of repair of anterior cruciate ligament of left knee Hx of bilateral mastectomy History of Problems with Anesthesia: No Social History Social History Do you presently have visiting nurse or other home services: No Alcohol intake: current Alcohol type: beer Patient Tobacco Use Status: Never used Tobacco Use of substances other than those prescribed or required for medical reasons: No Have you been hit, kicked, punched, or otherwise hurt by someone within the past year? If so, by whom?: No Spiritual Healthcare Practices: no Buddhism Healthcare Practices: no Cultural Healthcare Practices: no Are you DNR?: No Advance Directives Information Provided: Yes (as above noted) Advance Directives on File: No FDLMP: n/a-had hysterectomy Poor oral hygiene: No (Invisalign aligners) Meds Allergies Allergy/AdvReac Type Severity Reaction Status Date / Time Penicillins (PCN) Allergy Intermediate Hives Verified 03/26/25 07:58 Home Medications ?Medication ?Instructions ?Recorded ?Confirmed ?Last Taken ?Type gabapentin 300 mg capsule 300 mg PO TID 03/23/25 03/26/25 03/25/25 History tramadol 50 mg tablet 50 mg PO TID PRN severe pain 03/23/25 03/26/25 03/26/25 06:00 History Exam Airway Mallampati Class: II TM Dist: >3cm Neck ROM: Full Heart: rrr Lungs: cta Assessment and Plan Assessment Anesthesia Assessment: Anesthesia Plan Discussed Final Anesthetic Review Family History of Problems with Anesthesia: No History of Problems with Anesthesia: No NPO: Yes ASA Class: III Final Preanesthetic Review: No Changes in Pt Med Stat, Meds/Allgs Chart Reviewed, Consent Obtained/Reviewed and Anes Risks/Benef Reviewed Patient Risk: Intermediate Procedure Risk: Intermediate Anesthetic Plan Anesthetic Plan: GA Disposition: Standard PACU
[2025-03-26] VITALS (8 sets, daily range): BP systolic 106–139; BP diastolic 70–81; PULSE 73–101; RESP 12–18; TEMP 36.1–36.6; O2SAT 96–98; BMI 23.9
--- NOTE | ~2025-03-26 | FL_ITS ---
EXAMINATION: FL GUIDANCE ONLY HISTORY: LS-S1 DISCECTOMY COMPARISON: None available. TECHNIQUE: Fluoroscopy time: 5.6 seconds. Cumulative Dose: 2.3667 mGy. DAP: 1.0295 mGym2 Images: 1. FINDINGS: A single fluoroscopic spot film of the lumbar spine in the lateral projection demonstrates a probe directed toward the L5 vertebral body from a posterior approach. FL/FL guidance in OR IMPRESSION: Fluoroscopy during procedure. Please see procedure report for additional information. Electronically signed by: Walt Cox MD 03/26/2025 10:53 AM EDT
--- NOTE | 2025-03-26 09:10 | MHC.SHP ---
Pre-Procedural Eval Section A - 24 Hr Update-Section A only Date of Service: 03/26/25 The patient is an INPATIENT: No Section B - Complete if H&P > 30 days Chief Complaint: Other intervertebral disc displacement, lumbar Details of Present Illness: Left leg pain Allergies: Allergies Allergy/AdvReac Type Severity Reaction Status Date / Time Penicillins (PCN) Allergy Intermediate Hives Verified 03/26/25 07:58 Review of Systems Sugical H&P ROS: Negative: Constitution, Cardiovascular, Respiratory, Neurological, Psychiatric, Hem-Onc, Allergic/Immunologic, Gastrointestinal, Genitourinary, Musculoskeletal, Integumentary, Endocrine and Eyes/Ears/Nose/Throat Exam Surgical H&P Exam: Normal: HEENT, Normal: Heart, Normal: Lungs, Normal: Extremities, Normal: Abdomen, Normal: Skin and Normal: Neurological (Awake, alert) Plan Diagnosis/Plan: Unchanged I have reviewed the history and physical and performed a pertinent physical examination on my patient. No changes have occurred unless specified. Left L5-S1 microdiskectomy Time Spent With Patient Time: Total time managing care of this patient today _5___ minutes.
[2025-03-26] MEDS: Lactated Ringers 1,000 ML 100 ML IVCONT (09:39)
--- NOTE | 2025-03-26 11:34 | P.OP_ITS ---
Operative Note Operative Note Date of Service: 03/26/25 Narrative: Preoperative diagnosis: Left S1 radiculopathy due to disc herniation Postoperative diagnosis: Same Procedure: Left L5-S1 microdiskectomy with microscope Surgeon: Jacek Osorio MD, PhD Construction Trades Teacher: zachary Lucero This patient is suffering from excruciating left S1 radiculopathy due to disc herniation. The patient was offered a L5-S1 microdiskectomy to decompress the nerve root. The procedure complications were explained. The patient was consented. The patient was brought to the operating room and endotracheally intubated. The patient was turned in a prone position on the Dk frame. Pr epping and draping was done followed by time-out. A mid lumbar incision was made followed by release of the paravertebral muscles on the left side to expose the L5-S1 interspace. An intraoperative x-rays obtained to confirm the correct level. The microscope was brought in. A L5 laminotomy was done followed by opening of the flavum ligament. The S1 nerve root was identified. The S1 nerve root was displaced posteriorly. The nerve root was retracted medially to expose the L5-S1 disc space. I could palpate a disc herniation medial from the S1 nerve root. The disc was very difficult to remove it to the fact that the PLL was contained in it. I incised the disc space sharply and push down disc into the disc space and eventually we were finally able to luxate several large fragments of disc herniation from under the S1 nerve root. The disc space was inspected and any residual disc fragments were removed. This resulted in an excellent decompression of the S1 nerve root. Hemostasis was done. The microscope was removed. Marcaine was injected intramuscularly.The incision was closed in two layers. Steri-Strips used to approximate the incision. An op- site were taken there was used to cover the incision. All sponge and needle counts were correct. Patient was extubated and transported in stable condition to recovery room. this procedure was done with the aid of a physician housekeeper and laundry assistant who performed the initial exposure until the microscope was brought in and performed the closure of the incision. Anesthesia: General Blood loss: 25 mL Complications: None Specimen: None Surgical time: 60 minutes Disposition: Discharge home
--- NOTE | 2025-03-26 11:38 | P.DS_ITS ---
DS: Providers Provider Date of Service: 03/26/25 Date of discharge: 03/26/25 Primary care physician: Cristiane Curtis MD Admitting clinician: Jacek Osorio DS: Diagnosis Discharge Diagnosis (1) Lumbar disc herniation: Status: Inactive DS: Summary Time Attestation Discharge Coordination Time (in mins): 4 Quality: Safe Use of Opioids Does Pt have an Active Cancer Diagnosis on the Problem List?: No Quality: Stroke Does the patient have a stroke diagnosis?: No Physical Exam Vital Signs: Vital Signs: Last Vital Signs Temp 97.9 F 03/26/25 08:02 Pulse 73 03/26/25 08:02 Resp 16 03/26/25 08:02 BP 106/70 03/26/25 08:02 Pulse Ox 98 03/26/25 08:02 O2 Del Method Room Air 03/26/25 08:02 BMI result Body Mass Index 23.9 Discharge Plan Discharge Patient Disposition: Home, Self-Care Referrals: Cristiane Curtis MD [Primary Care Provider, Medical] - 1 Week Discharge Medications: New docusate sodium [Colace] 100 mg capsule 100 mg PO BID Qty: 20 0RF oxycodone 5 mg tablet 5 mg PO Q4H PRN (Reason: pain) Qty: 20 0RF Rx Instructions: Partial Fill upon patient request. Continued tramadol 50 mg tablet 50 mg PO TID PRN (Reason: severe pain) gabapentin 300 mg capsule 300 mg PO TID Discharge Orders: Discharge Order (Routine); Ordered 03/26/25 Ordered By: Aj Rush Diet: Advance to usual diet Activity on Discharge: As tolerated Activity Restrictions/Additional Instructions: After your spinal surgery we ask you to observe the following restricti ons/guidelines: Activity: It is normal to feel some discomfort as you increase your activity, but that will improve with time. We ask you avoid heavy lifting or acitivities that cause pain. As a general rule, 8lbs is a safe limit for lifting right after surgery. Walk as much as you feel comfortable but not to exhaustion. You will feel extra tired the first few days after surgery. Stay well hydrated. It is OK to walk up and down stairs You may return to driving when you are off narcotics (such as vicodin, oxycodone, dilaudid, etc), and you are back to normal functional capacity. If you have any concerns please check with office before driving. Return to work is specific to each patient and each surgery, so please speak with your doctor/PA at first follow up. Please bring paperwork such as FMLA at that time if you need it filled out. Medications: For optimum pain control, it is best to start with a combination of 500 mg of Tylenol every 4 hours with 600 mg of Motrin every 8 hours, and use narcotics as needed in between for breakthrough pain. We will give you a short supply of narcotics after surgery (usually one weeks worth). If you need more please call the office but do not use more than prescribed. You will need to give our office 48 hours notice if you need narcotics refilled and we do not fill narcotics on weekends or evenings. If you are on a narcotic, it is a good idea to take a stool softener such as colace or senna to avoid constipation If you take blood thinner such as aspirin, Plavix, Coumadin, Effient, Eliquis etc for conditions such as Afib, DVT, Pulmonary embolus, coronary disease, stents etc please speak with your surgeon about specific details as to when you can resume these medications. You can resume NSAIDs on post op day 1 (eg: Motrin, Naproxen, etc). Follow up: Please call the office, , after surgery to arrange a 3 week follow up for wound check. Wound Care: You may remove your dressing on the first day after surgery. ?You may ?leave open to air. Please do not remove the steri strips underneath. they will fall off on their own in one week. IT IS NORMAL FOR THE WOUND TO OOZE OR BE BLOODY FOR A FEW DAYS AFTER SURGERY. ?IF THIS HAPPENS JUST PLACE NEW DRESSING OVER IT TO AVOID STAINING CLOTHES. You may shower on post op day # 1 We ask that you do not let the water soak the wound. If it does get wet, just towel dry lightly. Please do not scrub your incision or place any type of chemical/ointment on the wound. No tub baths, pools or jacuzzis for one month. If you have any leaking or redness from your wound, or fevers, please call office Print Language: Palestinian
== END 2025-03-26 13:06 | disposition home or self-care (01) ==
PROVIDERS: PCP Internal Medicine; Visit Provider Neurological Surgery
PROC: (CPT 63030; principal; 2025-03-26 09:30)
DX: M51.16 Intervertebral disc disorders with radiculopathy, lumbar region (principal); M51.26 Other intervertebral disc displacement, lumbar region; Z88.0 Allergy status to penicillin; Z85.3 Personal history of malignant neoplasm of breast; Z90.13 Acquired absence of bilateral breasts and nipples; Z79.899 Other long term (current) drug therapy; Z98.890 Other specified postprocedural states
CPT/HCPCS: 63030; J0131; J1100; J1885; J2003; J2250; J2405; J2704; J3010; J3374

== ENCOUNTER → 2025-03-26 07:07 | Outpatient (BNV) | payer OTHER, SELFPAY | PROVIDERS: PCP Internal Medicine; Visit Provider Neurological Surgery | DX: M51.26 Other intervertebral disc displacement, lumbar region (principal) | CPT/HCPCS: 63030; 99499 ==

== ENCOUNTER 2025-04-17 13:09 | Outpatient (AMB) | payer OTHER, SELFPAY ==
--- OUTSIDE RECORDS SUMMARY | 2025-04-17 13:12 | XMS_ITS | Clinical Summary ---
Author Organization [facility] Address [address] [facility] [address] [place] [address] Phone Care Team Providers Care Systems Navigator Name Role Phone Malachi White MD Primary Care Provider Self-Referred, Patient Unavailable Unavailab Donna Schwartz MD Unavailable [phone] Allergies Active Allergy Reactions Criticality Noted Date Comments Penicillins Hives 03/05/2017 Medications No known medications Active Problems Problem Noted Date Diagnosed Date Malignant neoplasm of upper- outer quadrant of right female breast 03/07/2017 Family History Medical History Relation Comments Breast cancer Maternal Aunt Ovarian cancer Neg Hx Relation Status Comments Maternal Aunt Social History Tobacco Use Types Packs/Day Years Used Date Smoking Tobacco: Never Alcohol Use Standard Drinks/Week Comments Yes 1 (1 standard drink = 0.6 oz pur e alcohol) Education Answer Date Recorded Are you interested in more education? Not on otilia e 01/19/2023 Are you concerned about learning? Not on file 01/19/2023 No 01/19/2023 No 01/19/2023 Digital Access Answer Date Recorded No 02/19/2023 No 02/19/2023 No 02/19/2023 Reliable internet access at home? Not on file 02/19/2023 Device with a working camera? 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 file Not on file Not on file Last Filed Vital Signs Vital Sign Reading Time Taken Comments Blood Pressure 121/68 03/07/2017 8:03 AM EDT COPIED FROM [facility] Pulse 75 03/07/2017 8:03 AM EDT COPIED FROM [facility] Temperature 36.9 C (98.4 F) 03/07/2017 8:03 AM EDT COPIED FROM [facility] Respiratory Rate 16 03/07/2017 8:03 AM EDT COPIED FROM [facility] Oxygen Saturation - - Inhaled Oxygen Concentration - - Weight 60.6 kg (133 lb 9.6 oz) 03/07/2017 8:03 AM EDT COPIED FROM [facility] Height 161.8 cm (5' 3.7 ) 03/07/2017 8: 03 AM EDT COPIED FROM [facility] Body Mass Index 23.15 03/07/2017 8:03 AM EDT Plan of Treatment Health Maintenance Due Date Last Done Comments Adult Td,Tdap Booster 1971 LIPID PANEL 1971 DEPRESSION SCREENING 1983 HEPATITIS C SCREENING 1989 HIV ONE-TIME SCREENING (18-65 YEARS) 1989 PNEUMOCOCCAL VACCINES (50+ years) (1 of 2 - PCV) 1990 PAP SMEAR 1992 COLOGUARD 2016 COLONOSCOPY 2016 COLORECTAL CANCER SCREENING 2016 FIT TEST 2016 FOBT 2016 SIGMOIDOSCOPY 2016 VIRTUAL COLONOSCOPY 2016 MAMMOGRAM 03/01/2019 03/01/2017, 01/23, 02/15/2017, Additional history exists ZOSTER VACCINES (2 of 2) 08/02/2021 06/07/2021 COVID-19 VACCINE (2 - 2023- season) 2024 09/22/2021 SMOKING STATUS SCREENING (Once After 26 Yrs) Completed 03/10/2017 HEPATITIS A VACCINES Aged Out 12/01/2019, 06/24/20 19 No longer eligible based on patient's age to complete this topic HIB VACCINES Aged Out No longer eligi ble based on patient's age to complete this topic MENINGOCOCCAL VACCINES (ACWY) Aged Out No longer eligible based on patient's age to complete this topic MENINGOCOCCAL VACCINES (B) Aged Out N o longer eligible based on patient's age to complete this topic Medical Devices Not on file Procedures Procedure Name Priority Date/Time Associated Diagnosis Comments BI MRI BREAST OUTSIDE (NO INTERPRETATION) Routine 03/01/2017 12:00 AM EDT from Last 3 Months or Most Recently Relevant to Health Maintenance Results * MRI Breast Outside (No Interpretation) (03/01/2017 12:00 AM EDT) Narrative CARLY - 03/07/2017 8:00 AM EDT This study is for PACS storage only and not for interpretation. us Aj Lester MD, MPH IMG OUTSIDE IMAGING W/ OUT INTERPRETATION Final Result SANDRA_ANGELA from Last 3 Months or Most Recently Relevant to Health Maintenance Insurance [facility] [facility] [employer] [facility] [employer] [facility] [employer] [facility] [employer] [facility] [employer] [facility] [employer] [facility] [employer] POS [facility] [employer] POS HC EXPLORER POS Care Teams Systems Navigator Relationship Specialty Start Date End Date Malachi White MD [address] [place] [id number] PCP - General Internal Medicine 03/01/17 Self-Referred, Patient Referring Physician 03/01/17 Donna Diaz MD Referring Physician Surgical Oncology 03/07/17 Additional Source Comments The information contained in this document represents components of the legal health record. It is not the complete legal health record.[facility]
--- OUTSIDE RECORDS SUMMARY | 2025-04-17 13:12 | XMS_ITS | Data Portability ---
Author Organization [place] [facility] Address [address] [address] Care Team Providers Care Registration Scheduling Specialist Name Role Phone [employer] Primary Care Pro vider Assessment Encounter Date [...] and saline irrigations. Follow-up in 2 months. [email or web address] Not available 06/20/2024 12:04:15 08/15/2024 08/15/2024 Patient [...] and see me back in 6 months [email or web address] Not available 08/15/2024 12:00:39 Plan of Treatment [...] By Organization Details Last Modified Time 02/06/2025 [id number] Patient with history of nasal polyps and [...] Detail LastModifiedTime 05/14/20 24 12/05/2023 imagi ng/di agnos tic resul t No observ ation record ed. [email or web address] Not Available 05:17:02 Result Notes None recorded. Problems Name Problem SNOMED Code Status Onset Date Resolution Date Notes Provider Name and Address Organization Details Recorded Time Chronic pansinusi tis 31397130 Active 2023 Chronic pansinusit is; Note: Date Diagnosed: 12/05/2023 4:16 PM (J32.4) Not Available [facility] 02:12:46 Hypertrop hy of nasal turbinate s 68985683 Active 2023 Hypertroph y of nasal turbinates ; Note: Date Diagnosed: 11/19/2015 8:40 AM (J34.3) MARLEE HENRY MD [address] [facility],[place] [address], [place], [address] , [facility] - [facility] 5 11:57:20 Polyp of nasal cavity 129280027 Active 2023 Polyp of nasal cavity; Note: Date Diagnosed: 11/24/2015 4:49 PM (J33.0) Not Available [facility] 4 02:14:46 Chronic sinusitis 27328562 Active 2023 MD Yadira GAMA [facility],[place] [address], [place], [address] , [facility] - [facility] 4 15:25:50 Deviated nasal septum 941423128 Active 2023 MD Yadira GAMA [facility],[place] [address], [place], [address] , [facility] - [facility] 4 15:26:06 Polyp of nasal cavity and/or nasal sinus 316552955 Active 2023 MD Yadira GAMA [facility],[place] [address], [place], [address] , [facility] [place] 4 15:26:30 Chronic rhinitis 30212924 Active 2023 MD Yadira GAMA [facility],[place] [address], [place], [address] , [facility] - [facility] 5 11:57:15 Eosinophi l count above reference range 232157317 Active 2024 MD Yadira GAMA [facility],[place] [address], [place], [address] , [facility] - [facility] 5 12:13:08 Problem Notes None recorded. Procedures Surgical History Date Name Laterality Status Provider Name and Address Organization Details Recorded Time 5 JMSNasal/Sinus Endoscopy-PRIOR surgical cavities completed MARLEE RICHARDS MD [address],[place] [address] [place] [address], [phone], [place] [facility] [place] 02/06/2025 11:57:10 4 JMSNasal/Sinus Endoscopy-PRIOR surgical cavities completed MARLEE RICHARDS MD [address],[place] [address] [place] [address], [phone], [place] [facility] [place] 08/15/2024 11:59:59 4 JMSNasal/Sinus Endoscopy-PRIOR surgical cavities completed MARLEE RICHARDS MD [address],[place] [address] [place] [address], [address], [place] [facility] [place] 06/20/2024 12:03:26 4 JMSNasal/Sinus Endoscopy-DEBRI BETZY completed MICHAEL GROVER PA-C [address] [facility] [address],[place] [address] [place] [address], [address], [place] [facility] [place] 06/03/2024 09:30:27 4 JMSNasal/Sinus Endoscopy-DEBRI BETZY completed MARLEE RICHARDS MD [address] [facility] [facility] [address],[place] [address] [place] [address], [phone], [place] [facility] [place] 05/29/2024 08:47:33 4 JMSNasal/Sinus Endoscopy-DEBRI BETZY completed MARLEE RICHARDS MD [address] [facility] [facility] [address],[place] [address] [place] [address], [address], [place] [facility] [place] 05/27/2024 16:28:35 4 JMSNasal/Sinus Endoscopy-DEBRI BETZY completed HOLLY BAILON PA-C [address] [facility] [address],[place] [address] [place] [address], [address], [place] [facility] [place] 2024 11:23:19 4 functional endoscopic sinus surgery completed MARLEE RICHARDS MD [address],[place] [address] [place] [address], [phone], [place] [facility] [place] 05/27/2024 16:24:33 Imaging Results None recorded. Procedure Notes None recorded. Medical Equipment None Reported. Allergies Allergen ID Allergen Name Allergen Category Reaction Reaction Severity Criticality Documentation Date Start Date Code Code System Note Provider Name and Address Organization Details Recorded Time 875063 Penicilli n Not available other Not available Not available 04/25/2024 18967 RxNorm React ion: Unkno wn; Not Available [facility] 00:23:13 Medications Name Sig Start Date Stop Date Status Note LastModified by Organization Details LastModified Time doxycycli ne hyclate 100 mg capsule TAKE 1 CAPSULE BY MOUTH TWICE A DAY FOR 10 DAYS 06/20 completed Not Available Not Available Not Available prednison e 20 mg tablet by mouth 01/27 completed Medicati on ID: [id number] P rescribe d By Name: Kathy Mart [...] as directed 05/19 completed Medicati on ID: [id number] D uration Value: 14 Brand Name: Bactrim DS Send Method: E-Prescr ibed Sub s Allowed: subs OK Speci al Instruct ion: Yogurt/p robiotic concurre ntly Med icationG enericNa me: Bactrim DS Not Available Not Available Not Available Xhance 93 mcg/actua tion breath activated aerosol [place] 1 spray twice a day by intranas al route. 05/19 completed Not Available Not Available Not Available Vitals Date Recorded Body height Body mass index (BMI) Body weight Provider Name and Address Organization Details Last Updated DateTime 06/03/2024 162.56 cm 23.7 kg/m2 08565.75 g Eve Fulton [place] - [facility] 06/03/2024 08:49:30 Date Recorded Body height Body weight Provider Name and Address Organization Details Last Updated DateTime 06/20/2024 162.56 cm 31106.75 g Nandini Gee [place] [facility] [place] 06/20/2024 11:29:09 Date Recorded Body height Body mass index (BMI) Body weight Provider Name and Address Organization Details Last Updated DateTime 08/15/2024 162.56 cm 24 kg/m2 78505.93 g Bunny Reveles [place] [facility] 08/15/2024 11:44:26 Social History None recorded. Functional [...] Diagnosis Note [id number] MARLEE HENRY MD [facility] [address] [address] 04/21/2024 14:44:30 04/21/2024 15:33:09 Chronic sinusitis 75660397 J32.8 The risks and benefits of endoscopic [...] Sinus surgery brochure Deviated nasal septum 12 7829384 J34.2 Polyp of n brianne cavity and/or nasal sinus 599446765 J33.9 [id number] MARLEE HENRY MD [facility] of [address] [address] 2024 09:57:48 2024 10:27:24 Deviated nasal septum 337097433 J34.2 Resolved Hypertroph y of nasal turbinates 28392815 J34.3 Resolved Chronic pansinusitis 888 68412 J32.4 s/p FESS 04/2024 Polyp of n brianne cavity and/or nasal sinus 835509883 J33.9 s/p polypectom y 04/2024 [id number] MARLEE HENRY MD [facility] on [address] [place] [address], [place] [address] 05/27/2024 15:32:36 05/27/2024 16:40:18 Chronic sinusitis 92930257 J32.8 [id number] MARLEE HENRY MD [facility] [address] [address] 05/29/2024 08:07:40 05/29/2024 08:58:15 Chronic sinusitis 32155426 J32.8 [id number] MICHAEL GROVER PA-C [facility] on [address] [place] [address], [place] [address] 06/03/2024 08:45:46 06/03/2024 09:39:23 Deviated nasal septum 413132631 J34.2 Chronic pansinusitis 888 18645 J32.4 [id number] MARLEE HENRY MD [facility] [address] [address] 06/20/2024 11:12:16 06/20/2024 12:05:05 History of neoplasm 804054391 Z86.018 Chronic rhinitis 9850806 6 J31.0 [id number] MARLEE HENRY MD [facility] [address] [address] 08/15/2024 11:40:50 08/15/2024 12:14:40 Chronic sinusitis 27369478 J32.8 Polyp of nasal cavity 73 7274028 J33.0 [id number] MARLEE HENRY MD [facility] [address] [place] [address] 02/06/2025 11:13:22 02/06/2025 12:01:17 Chronic rhinitis 27292496 J31.0 Hypertroph y of nasal turbinates 43070347 J34.3 Eosinophil count above reference range 394984774 R89.8 Health Concerns Section Related Observation LastModified by Organization Detai ls LastModified Time None Recorded Concern Status LastModified by Organization Details LastModified Time None Recorded Advance Directives Directive None Recorded Payers Insurance Date Sequence Insurance Name Policy Number Policy Awan Covered Member ID Awan Member ID Guarantor Name 02/06/2025 1 [facility] IN[employer]ITY [employer] (PPO) [id number] Saúl Fowler [id number] Chante Fowler Notes Date Note Type Note Provider Name and Address Organization Details Recorded Time 05/29/2024 text/html Patient with persistent right sided obstruction and pressure following septoplasty, turbinate reduction and endoscopic sinus surgery. She started powered nasal lavage but did not at the budesonide MARLEE RICHARDS MD [address] [facility],[address], [address], [place] - [facility] [place] 05/29/2024 08:47:59 06/03/2024 text/html ROS as noted in the HPI 54 year old female with persistent right sided obstruction and pressure following septoplasty, turbinate reduction and endoscopic sinus surgery by Dr. Richards. She started powered nasal lavage. She is on doxycycline. She still feels some pressure on the right side under her eye. DARLENE CERVANTES MD [address] [facility],[place] [address], [place], [address], [place] [facility] 06/04/2024 05:12:53 06/20/2024 text/html Overall doing well following septoplasty, turbinate reduction and bilateral endoscopic sinus surgery. Presently Breathing and sense of doing saline lavage with the powered system including the budesonide. Otherwise well. No complaints MARLEE RICHARDS MD [address] [facility], [place], [address], [place] [facility] [place] 06/20/2024 12:05:18 02/06/2025 text/html More congestion recently. Prior RAST negative...Eosinop hil was 6%Not as diligent recently with budesonide MARLEE RICHARDS MD [address] [place] [address], [place], [address], [facility] - [facility] 02/06/2025 12:13:23 OBGyn Episode No OBEpisode recorded.
--- OUTSIDE RECORDS SUMMARY | 2025-04-17 13:12 | XMS_ITS | Patient Health Record ---
[facility] Organization [facility] Address [address] [facility] [address] [place] [address] Care Team Providers Care Parts Product Analyst Name Role Phone JOSE LUIS BARDALES M.D. Primary Care Provider Lucy Parsons [phone] Allergies Allergen (clinical drug ingredient) Drug/Non Drug Allergy documented on EMR Reaction Allergy Type Onset Date Status Penicillin Skin Rash Drug Allergy Active Reason For Referral No Information Social History Tobacco Use: Social History Observation Description Date Details (start date - stop date) Never Smoker NA - NA Tobacco Use/Smoking Question Answer Notes Are you a nonsmoker Alcohol Screen (Audit-C) Question Answer Notes Did you have a drink contain ing alcohol in the past year? Yes How often did you have a dri nk containing alcohol in the past year? Monthly or less (1 point) How many drinks did you have on a typical day when you were drinking in the past year? 1 or 2 drinks (0 point) How often did you have 6 or more drinks on one occasion in the past year? Never (0 point) Points 1 Interpretation Negative Sexual History Question Answer Notes Had sex in the past 12 months (vaginal, oral, or anal)? No Problems Problem Type SNOMED Code ICD Code Onset Dates Problem Status W/U Status Risk Notes Problem Excessive and frequent menstruation (865207867) Excessive and frequent menstruation with regular cycle (N92.0) Active confirmed Problem Abnormal vaginal bleeding (203373935) Other specified abnormal uterine and vaginal bleeding (N93.8) Active confirmed Problem Personal history of primary malignant neoplasm of breast (341597063) Personal history of malignant neoplasm of breast (Z85.3) Active confirmed Problem Menopause (549307498) Menopausal and female climacteric states (N95.1) Active confirmed Problem Gynecological examination normal (061894307694679) Encounter for gynecological examination (general) (routine) without abnormal findings (Z01.419) Active confirmed Plan Of Treatment Pending Test Test Name Order Date Urinalysis 11/26/2023 Insurance Providers Payer Name Payer Address Payer Phone Subscriber Number Group Number Insured Name Patient Relationship to Insured Coverage Start Date Coverage End Date [facility] INDEMNITY PLAN [address] [place], [place] [id number] [id number] TINAJERO Spouse - patient is the spouse of the insured Medical (General) History Medical History History ICD Code Sport Concussion Personal history of malignant neoplasm o f breast Z85.3 Excessive and frequent menstruation with regular cycle N92.0 Headache R51 Other specified abnormal uterine and vag inal bleeding N93.8 Personal history of malignant neoplasm o f breast Z85.3 Menopausal and female climacteric states N95.1 Genetic susceptibility to other malignan t neoplasm Z15.09 Surgical History Surgery Date(Month/Year) Breast Bx - Cancer 2017 Double Mastectomy 03/2017 Lt knee Surgery - ACL Tonsilectomy Hysterectomy 10/25/19 Implants removed and replaced 09/27/22 Hospitalization History Reason Date(Month/Year) See Surgical Hx
--- NOTE | 2025-04-17 13:29 | A.SPINEOV_ITS ---
Intake Visit Reasons: 1st Post-op Intake Note: Ms. Fowler is here today for her 1st post op. Teradata Solution Architect Required: No Allergies Penicillins (PCN) Allergy (Intermediate, Verified 04/17/25 13:29) Hives Assessment & Plan Assessment & Plan (1) Status post lumbar microdiscectomy: Code(s): Z98.890 - Other specified postprocedural states Category: Surgical Plan Dear colleague, On 04/17/2025 I saw for 1st postoperative visit Chante Fowler who is status post lumbar microdiskectomy on March 26 for severe lumbar radiculopathy. She is doing great. Radiating pain down her left leg is gone. We will keep her out of work till May 08. The incision is nicely healed. Thank you for the referral, Jacek Osorio MD, PhD Spine Fellowship Trained Neurosurgeon Director, [facility] Coding Level of Care Code Global (69984) Diagnoses Status post lumbar microdiscectomy Z98.890
== END 2025-04-17 14:31 | disposition home or self-care (01) ==
LOC: HO.HNS 13:10
PROVIDERS: PCP Internal Medicine; Visit Provider Neurological Surgery
DX: Z98.890 Other specified postprocedural states (principal)
CPT/HCPCS: 99024

== ENCOUNTER → 2025-04-17 13:09 | Outpatient (BNVA) | payer OTHER, SELFPAY | PROVIDERS: PCP Internal Medicine; Visit Provider Neurological Surgery | DX: Z47.89 Encounter for other orthopedic aftercare (principal); Z98.890 Other specified postprocedural states | CPT/HCPCS: 99212 ==

== ENCOUNTER 2025-05-08 11:28 | Outpatient (AMB) | payer OTHER, SELFPAY ==
--- OUTSIDE RECORDS SUMMARY | 2025-05-08 11:30 | XMS_ITS | Patient Health Record ---
[facility] Organization [facility] Address [address] [place] [address] Care Team Providers Care Elephant Tamer Name Role Phone JOSE LUIS BARDALES M.D. Primary Care Provider Lucy Parsons [phone] Allergies Allergen (clinical drug ingredient) Drug/Non Drug [...] Risk Notes Problem Excessive and frequent menstruation (230183609) Excessive and frequent menstruation with regular cycle (N92.0) Active confirmed Problem Abnormal vaginal bleeding (935312949) Other specified abnormal uterine and vaginal bleeding (N93.8) Active confirmed Problem Personal history of primary malignant neoplasm of breast (947684458) Personal history of malignant neoplasm of breast (Z85.3) Active confirmed Problem Menopause (585536745) Menopausal and female climacteric states (N95.1) Active confirmed Problem Gynecological examination normal (037451076669262) Encounter for gynecological examination (general) (routine) without abnormal findings (Z01.419) Active confirmed Plan Of Treatment Pending Test Test Name Order Date Urinalysis 11/26/2023 Insurance Providers Payer Name Payer Address Payer Phone Subscriber Number Group Number Insured Name Patient Relationship to Insured Coverage Start Date Coverage End Date FORMERLY [facility] INDEMNITY PLAN [address] [place], [place] [id number] TINAJERO Spouse - patient is [...]
--- OUTSIDE RECORDS SUMMARY | 2025-05-08 11:30 | XMS_ITS | Clinical Summary ---
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 Not on file Not on file Last Filed Vital Signs Vital Sign Reading Time Taken Comments Blood Pressure 121/68 03/07/2017 8:03 AM EDT COPIED FROM [facility] Pulse 75 03/07/2017 8:03 AM EDT COPIED FROM [facility] Temperature 36.9 C (98.4 F) 03/07/2017 8:03 AM EDT COPIED FROM [facility] Respiratory Rate 16 03/07/2017 8:03 AM EDT COPIED FROM [facility] Oxygen Saturation - - Inhaled Oxygen Concentration - - Weight 60.6 kg (133 lb 9.6 oz) 03/07/2017 8:03 AM EDT COPIED FROM [facility] Height 161.8 cm (5' 3.7 ) 03/07/2017 8: 03 AM EDT COPIED FROM [facility] Body Mass Index 23.15 03/07/2017 8:03 AM [...] Most Recently Relevant to Health Maintenance Insurance [facility] [employer] POS [facility] [employer] POS [facility] [employer] POS [facility] [employer] [facility] [employer] POS [facility] [employer] POS HC EXPLORER POS Care Teams Horticultural Manager Relationship Specialty Start Date End Date Malachi White MD [address] [place] [id number] PCP - General Internal Medicine 03/01/17 Self-Referred, Patient Referring Physician 03/01/17 Donna Diaz MD Referring Physician Surgical Oncology 03/07/17 Additional Source Comments The information contained in this document represents components of the legal health record. It is not the complete legal health record.[facility]
--- NOTE | 2025-05-08 12:24 | HO.SPINEOV ---
Intake Visit Reasons: 2nd post op Intake Note: Ms. Cristopher Fowler is here today for her 2nd post-op visit. Preform Plate Maker Required: No Allergies Penicillins (PCN) Allergy (Intermediate, Verified 04/17/25 13:29) Hives Assessment & Plan Assessment & Plan (1) Status post lumbar microdiscectomy: Code(s): Z98.890 - Other specified postprocedural states Category: Surgical Plan Mrs. Fowler is doing excellent, her leg pain is gone. She is more less ready to go back to work. She did try and had an issue with her gun belt giving her some back pain. She is working this out. Her strength is excellent, her wound healed up well and her gait is normal. She has no restrictions at this point. We can see her back on an as-needed basis. I gave her a note to return to work in 1 week. Aj Osorio MD, PhD [facility] Coding Level of Care Code Global (07648) Diagnoses Status post lumbar microdiscectomy Z98.890
== END 2025-05-08 12:43 | disposition home or self-care (01) ==
LOC: HO.HNS 11:29
PROVIDERS: PCP Internal Medicine; Visit Provider Physician Assistant
DX: Z98.890 Other specified postprocedural states (principal)
CPT/HCPCS: 99024

== ENCOUNTER → 2025-05-08 11:28 | Outpatient (BNVA) | payer OTHER, SELFPAY | PROVIDERS: PCP Internal Medicine; Visit Provider Physician Assistant | DX: Z98.890 Other specified postprocedural states (principal) | CPT/HCPCS: 99212 ==